=== PATIENT | male | born 2000 | race Two or more races ===

== ENCOUNTER 2018-03-28 12:07 | Emergency (ER) | payer OTHER ==
[2018-03-28 12:20] VITALS: BP 139/79; PULSE 80; TEMP 98.1; BMI 28.0
--- NOTE | 2018-03-28 13:26 | PDOC ---
History of Present Illness - General Chief Complaint: Bite Stated Complaint: BITES Time Seen by Provider: 03/28/18 12:38 History Source: Patient - History of Present Illness Timing/Duration: reports: other (1 month) Location: reports: extremities Past History - Past Medical History Allergies/Adverse Reactions: Allergies Allergy/AdvReac Type Severity Reaction Status Date / Time shellfish derived Allergy Swelling Verified 03/28/18 12:15 Home Medications: Ambulatory Orders NK [No Known Home Medication] 03/28/18 COPD: No - Immunization History Immunization Up to Date: Yes - Suicide/Smoking/Psychosocial Hx Smoking History: Never smoked Have you smoked in the past 12 months: No Information on smoking cessation initiated: No Hx Alcohol Use: No Drug/Substance Use Hx: No Substance Use Type: None Review of Systems - Review of Systems Constitutional: No: Fever Respiratory: No: Shortness of Breath, Wheezing Integumentary: Yes: Pruritus, Rash *Physical Exam - Vital Signs Last Vital Signs Temp Pulse Resp BP Pulse Ox 98.1 F 80 18 139/79 99 03/28/18 12:16 03/28/18 12:16 03/28/18 12:16 03/28/18 12:16 03/28/18 12:16 - Physical Exam General Appearance: Yes: Appropriately Dressed. No: Apparent Distress HEENT: positive: Normal Voice Neck: positive: Supple Respiratory/Chest: negative: Respiratory Distress Integumentary: positive: Dry, Warm, Other (hives of varying sizes to UE b/l) Neurologic: positive: Fully Oriented, Alert, Normal Mood/Affect Medical Decision Making - Medical Decision Making 03/28/18 13:22 18-year-old male, no significant history, here for evaluation of presumed insect bites. Patient states for the past month has been having intermittent insect bites which causes localized redness, swelling and itching. Has not used any antihistamine or topical meds per patient. Patient well-appearing and stable with multiple, erythematous papules to upper extremities consistent with hives. DC to take [id number] antihistamine as needed. Patient advised to use insect repellent to prevent bites in the near future *DC/Admit/Observation/Transfer Diagnosis at time of Disposition: Insect bite Qualifiers: Encounter type: initial encounter Qualified Code(s): W57.XXXA - Bitten or stung by nonvenomous insect and other nonvenomous arthropods, initial encounter - Discharge Dispostion Disposition: HOME Condition at time of disposition: Good - Referrals - Patient Instructions Printed Discharge Instructions: How to Care for an Insect Bite or Sting Additional Instructions: Insect repellent can help to prevent insect bites in the future For bites use claritin, benadryl or zrytec for icthing/swelling. Cold compresses can also help - Post Discharge Activity Forms/Work/School Notes: Back to Work
== END 2018-03-28 13:28 | disposition home or self-care (01) ==
LOC: JERFT 12:07
DX: S40.862A Insect bite (nonvenomous) of left upper arm, initial encounter (principal); S40.861A Insect bite (nonvenomous) of right upper arm, initial encounter; W57.XXXA Bitten or stung by nonvenomous insect and other nonvenomous arthropods, initial encounter; Y93.89 Activity, other specified; Y92.89 Other specified places as the place of occurrence of the external cause; Y99.8 Other external cause status; L50.8 Other urticaria
CPT/HCPCS: 99281-25

== ENCOUNTER 2018-06-15 15:23 | Emergency (ER) | payer SELFPAY ==
[2018-06-15 15:32] VITALS: BP 123/63; PULSE 73; TEMP 98.4; BMI 29.5
--- NOTE | 2018-06-15 16:19 | PDOC ---
History of Present Illness - General Chief Complaint: Eye Problem Stated Complaint: EYE PROBLEM Time Seen by Provider: 06/15/18 16:13 History Source: Patient Exam Limitations: No Limitations - History of Present Illness Initial Comments: 06/15/18 16:30 Patient came for evaluation of very itchy eyes, redness, tearing and excoriation in itchiness around orbits for approximately 2-3 weeks. States has some mild swelling to his face and his lips but no swelling to tongue or throat. Denies any shortness of breath or wheezing. Patient also has some eruptive rashes forearms right and left arm primarily at elbows. Has no history of eczema but has a seafood ALLERGY. 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 Timing/Duration: unsure Severity: mild, moderate Associated Symptoms: denies: cough, fever/chills Past History - Travel Traveled outside of the country in the last 30 days: No Close contact w/someone who was outside of country & ill: No - Past Medical History Allergies/Adverse Reactions: Allergies Allergy/AdvReac Type Severity Reaction Status Date / Time shellfish derived Allergy Swelling Verified 06/15/18 15:31 Home Medications: Ambulatory Orders NK [No Known Home Medication] 03/28/18 COPD: No - Immunization History Immunization Up to Date: Yes - Suicide/Smoking/Psychosocial Hx Smoking History: Never smoked Have you smoked in the past 12 months: No Hx Alcohol Use: No Drug/Substance Use Hx: No Substance Use Type: None Review of Systems - Review of Systems Able to Perform ROS?: Yes Is the patient limited Amharic proficient: Yes Constitutional: Yes: Symptoms Reported, See HPI. No: Chills, Fever HEENTM: Yes: Symptoms Reported, See HPI, Eye Pain, Tearing, Nose Congestion, Mouth Swelling. No: Mouth Pain Respiratory: Yes: See HPI. No: Symptoms reported, Cough, Wheezing Integumentary: Yes: Symptoms Reported, See HPI, Erythema, Lesions, Pruritus, Rash All Other Systems: Reviewed and Negative *Physical Exam - Vital Signs Last Vital Signs Temp Pulse Resp BP Pulse Ox 98.4 F 73 18 123/63 99 06/15/18 15:30 06/15/18 15:30 06/15/18 15:30 06/15/18 15:30 06/15/18 15:30 - Physical Exam General Appearance: Yes: Nourished, Appropriately Dressed, Apparent Distress, Mild Distress HEENT: positive: EOMI, YOANNA (patient with circumferential excoriation and eczematous changes to both orbits, conjunctiva was erythematous and tearing. Has some clear), TMs Normal, Pharynx Normal, Rhinorrhea (with thick white posterior sinus drainage noted) Neck: positive: Supple. negative: Tender, Lymphadenopathy (R), Lymphadenopathy (L) Respiratory/Chest: positive: Lungs Clear, Normal Breath Sounds. negative: Wheezing Musculoskeletal: positive: Normal Inspection Extremity: positive: Normal Capillary Refill, Normal Inspection, Normal Range of Motion Integumentary: positive: Normal Color, Pale, Rash (excoriation and maculopapular rash with some keratinization to bilateral elbow creases consistent with an eczematous appearance) Neurologic: positive: information security officer II-XII NML intact, Fully Oriented, Alert, Normal Mood/ Affect, Normal Response, Motor Strength 5/5 *DC/Admit/Observation/Transfer Diagnosis at time of Disposition: Contact dermatitis and eczema - Discharge Dispostion Disposition: HOME Condition at time of disposition: Stable Decision to Admit order: No - Referrals - Patient Instructions Printed Discharge Instructions: DI for General Allergic Reactions Additional Instructions: Rest, drink lots of fluids: Teas, water, soups Saltwater gargles. Consider humidifier in room at night Steamy showers/seem to face break up mucus Avoid contact with allergens, exposure to pollens, close windows on a windy day Lots of handwashing and good hygiene Cooler showers, may use aloe vera gel to help soothe some of the itching Continue [id number] medications for symptomatic relief- may use allergic eyedrops for itching I antihistamines daily for 3 days and then as needed Zyrtec, Claritin, Hattie during the daytime and Benadryl at nighttime as will make sleepy You have been given 1 dose of Decadron 10 mg, as a long-acting steroid to help with inflammation and ALLERGIC reaction Tylenol or Motrin for fever and pain Followup with private physician in one to 2 days as needed Consider following up with an wedding decorator/laboratory technical specialist for skin testing and possible allergy shots Return to emergency department for worsened symptoms, fevers, dehydration - Post Discharge Activity Forms/Work/School Notes: Back to Work
[2018-06-15] MEDS ORDERED: DEXAMETHASONE SOD PHOSPHATE 10 MG/1 ML VIAL IM ONE (16:30)
[2018-06-15] MEDS ORDERED: DEXAMETHASONE SOD PHOSPHATE 10 MG/1 ML VIAL ONE (16:34)
== END 2018-06-15 16:38 | disposition home or self-care (01) ==
LOC: JERFT 15:23
PROC: 3E0233Z Introduction of Anti-inflammatory into Muscle, Percutaneous Approach (ICD-10-PCS; principal; 2018-06-15)
DX: L25.9 Unspecified contact dermatitis, unspecified cause (principal)
CPT/HCPCS: 99281-25; J1100